=== PATIENT | male | born 1970 | race Caucasian/White ===

== ENCOUNTER → 2018-04-18 | Outpatient (CLI) | payer OTHER ==
--- NOTE | 2018-04-18 08:05 | Diagnostic Imaging Report ---
INDICATION: Neck pain AP, lateral and odontoid views of the cervical spine are obtained. There is mild straightening of normal cervical lordosis. Vertebral body heights and disc spaces are maintained. Prevertebral soft tissues are at the upper limits of normal. No fracture or subluxation is seen. IMPRESSION: Prevertebral soft tissues are at the upper limits of normal which may be due to edema or inflammation. Clinical correlation is recommended. Otherwise, there is no radiographic evidence of acute cervical spinal abnormality. Dictated by: Dictated on workstation # [id number]
== END ==
LOC: RAD 07:09
PROVIDERS: ATTEND Family Medicine
DX: M54.12 Radiculopathy, cervical region (principal)
CPT/HCPCS: 72040